=== PATIENT | female | born 1940 | race Caucasian/White ===

== ENCOUNTER → 2017-04-14 | Outpatient (CLI) | payer OTHER ==
[2017-04-14 19:01] LABS: BASOPHILS # (AUTO) 0.05 10*3/UL; BASOPHILS % (AUTO) 0.8 % (0-1); EOSINOPHILS # (AUTO) 0.23 10*3/UL; EOSINOPHILS % (AUTO) 3.7 % (0-8); HEMATOCRIT 37.5 % (37.0-47.0); HEMOGLOBIN 12.8 g/dL (12.0-16.0); LYMPHOCYTES # (AUTO) 1.36 10*3/uL; MEAN CORPUSCULAR HEMOGLOBIN 29.7 PG (27-31); MEAN CORPUSCULAR HGB CONC 34.1 g/dL (33-37); MEAN PLATELET VOLUME 10.5 FL (7.4-12.2); MONOCYTES % (AUTO) 11.2 % (5-15); NEUTROPHILS # (AUTO) 3.91 10*3/UL; NEUTROPHILS % (AUTO) 62.3 % (50-80); RED BLOOD COUNT 4.31 10^6/uL (4.20-5.40)
[2017-04-14 19:09] LABS: BUN/CREATININE RATIO 17.27 (6-20); CALCIUM 9.6 mg/dL (8.7-10.7); SERUM ALBUMIN 4.2 g/dL (3.5-4.8)
[2017-04-14 19:11] LABS: PLATELET MORPHOLOGY COMMENT NORMAL MORPHOLOGY (NORM); RBC MORPHOLOGY COMMENT NORMAL MORPHOLOGY (NORM); WBC MORPHOLOGY COMMENT NORMAL MORPHOLOGY (NORM)
[2017-04-14 19:24] LABS: FREE T4 (FREE THYROXINE) 1.36 ng/dL (0.93-1.71)
== END ==
LOC: MOB LAB 17:37
PROVIDERS: ATTEND Physician Assistant
DX: R25.2 Cramp and spasm (principal); I10 Essential (primary) hypertension
CPT/HCPCS: 36415; 80053; 82550; 84439; 84443; 85025

== ENCOUNTER → 2017-05-12 | Outpatient (CLI) | payer OTHER ==
--- NOTE | 2017-05-12 14:44 | DI ---
XR FOOT COMPLETE MIN 3VW WB,05/12/2017 11:20 AM: Clinical History: Burgess's metatarsalgia. Previous Exam: None at this facility. Findings: 3 views of the left foot are obtained, and demonstrate anatomic alignment without acute fractures. There is a small avulsion involving the proximal left second phalanx along the fibular surface which may represent a prior avulsion fracture. The surrounding soft tissues are unremarkable. There is enthesopathy noted at the insertion of the plantar fascia. There is some soft tissue swellin g over the dorsum of the foot. Impression: Slightly displaced fracture involving the left second proximal phalanx. This appears to represent an old fracture.
--- NOTE | 2017-05-12 15:00 | DI ---
XR FOOT COMPLETE MIN 3VW WB,05/12/2017 11:20 AM: Clinical History: Right foot pain Previous Exam: None at this facility. Findings: 3 views of the right foot are obtained, and demonstrate anatomic alignment without fractures. There i s mild enthesopathy at the insertion of the plantar fascia. There is no evidence of ankle joint effusion. Mild degenerative changes of the first metatarsophalangeal joint are noted. Impression: Enthesopathy at the insertion of the plantar fascia most consistent with plantar fasciitis. Mild degenerative changes of the right first metatarsophalangeal joint.
== END ==
LOC: MOB RAD 11:21
PROVIDERS: ATTEND Podiatrist Foot & Ankle Surgery
DX: G57.63 Lesion of plantar nerve, bilateral lower limbs (principal); M79.671 Pain in right foot; M79.672 Pain in left foot; M19.071 Primary osteoarthritis, right ankle and foot; M72.2 Plantar fascial fibromatosis; M77.8 Other enthesopathies, not elsewhere classified
CPT/HCPCS: 64455 ×2; 73630 ×2; 99203; G0463; J0702

== ENCOUNTER → 2017-05-26 | Outpatient (CLI) | payer OTHER | LOC: MMPC 10:00 | PROVIDERS: ATTEND Podiatrist Foot & Ankle Surgery | DX: M79.671 Pain in right foot (principal); M19.071 Primary osteoarthritis, right ankle and foot | CPT/HCPCS: 99213; G0463 ==